=== PATIENT | male | born 1985 | race Caucasian/White ===

== ENCOUNTER 2024-02-03 10:31 | Day surgery (SDC) | payer OTHER ==
[2024-02-03] MEDS ORDERED: propofoL 500 MG/50 ML 50 ML ONE (10:46)
[2024-02-03] MEDS: Lactated Ringers 1,000 ML IV SCH (10:55)
[2024-02-03] MEDS ORDERED: Lactated Ringers 1,000 ML IV SCH (12:15)
[2024-02-03 12:55] VITALS: BP 105/57; PULSE 84
== END 2024-02-03 12:32 | disposition home or self-care (01) ==
LOC: MW.SDS 10:31
PROVIDERS: ATTEND Surgery
DX: Z12.11 Encounter for screening for malignant neoplasm of colon (principal); Z86.0100 Personal history of colon polyps, unspecified; G40.909 Epilepsy, unspecified, not intractable, without status epilepticus; K21.9 Gastro-esophageal reflux disease without esophagitis; F17.210 Nicotine dependence, cigarettes, uncomplicated; Z79.899 Other long term (current) drug therapy
CPT/HCPCS: 45378; J2704; J7120